=== PATIENT | male | born 1945 | race Caucasian/White ===

== ENCOUNTER → 2024-12-26 15:33 | Outpatient (CLI) | payer MEDICARE, BC, SELFPAY ==
--- NOTE | 2024-12-26 15:42 | DI.MRI.S_ITS ---
PROCEDURE: MR CERVICAL SPINE WO CON
== END ==
PROVIDERS: PCP Family Medicine; Referring Provider Physician Assistant Medical; Visit Provider Physician Assistant Medical
DX: M47.812 Spondylosis without myelopathy or radiculopathy, cervical region (principal); M50.31 Other cervical disc degeneration, high cervical region; M46.92 Unspecified inflammatory spondylopathy, cervical region; G95.89 Other specified diseases of spinal cord; G93.89 Other specified disorders of brain; M48.02 Spinal stenosis, cervical region; R20.8 Other disturbances of skin sensation; M62.81 Muscle weakness (generalized); M95.8 Other specified acquired deformities of musculoskeletal system; Z98.890 Other specified postprocedural states
CPT/HCPCS: 72141